=== PATIENT | female | born 1990 | race Caucasian/White ===

== ENCOUNTER 2016-12-24 13:05 | Emergency (ER) | payer OTHER ==
[~2016-12-24] VITALS: Ht 152.4 cm; Wt 54.1 kg
[2016-12-24 13:11] VITALS: BP 109/70; PULSE 85; RESP 16; O2SAT 97
--- NOTE | 2016-12-24 13:27 | ED.REPORT ---
HPI-NVD Date of Service Dec 24, 2016 ED Provider: Nathan Rey MD Pt is a 26 y.o. female who presents to the ED c/o general weakness and fatigue onset 2 day ago. Pt reports that she had a sinus infection 2 weeks ago and was prescribed abx, she discontinued them after a week as she felt improved. 2 days ago she began to feel a decline in her health again and now reports associated nausea, vomiting (x1), chills, headache, diaphoresis, congestion, sinus problem , ear pain and ringing bilaterally. She denies fever and cough. She states that her housemates have also been sick recently and the friend that accompanies her to the ED states that he is still experiencing a sinus infection. Nursing Notes Stated Complaint: VOMITING/WEAK Chief Complaint: General Complaint Nursing Notes Reviewed: Yes ([employer] not reconciled) Allergies: Coded Allergies: hydrocodone bit (Verified Allergy, 11/29/12) Scheduled PRN Promethazine (Promethazine) 25 Mg Tablet 25 MG PO Q6H PRN PRN For Nausea General Time Seen by MD: 13:25 Chief Complaint Other (Weakness and Fatigue) Hx Obtained From: Patient Arrived By: Walk-in Onset Occurred: 2 days ago Context of Onset: Recent antibiotic use Symptom Duration: Since onset Recent Healthcare: No recent hospitalization, Recent doctor visit Past Medical History Past Medical History EMR indicates hx of substance abuse Past Surgical History Denies Review of Systems Constitutional: Reports: Chills, Fatigue, Weakness - generalized, Denies: Fever Ears / Nose / Throat: Reports: Ear ringing bilateral, Earache bilateral, Nasal congestion, Sinus problem GI: Reports: Nausea Skin: Reports Diaphoresis Neurologic: Reports: Headache Complete sys rev & neg: except as marked. Respiratory: Denies: Non-productive cough Physical Exam Initial Vital Signs Vital Signs (First) Date Time Temp Pulse Resp B/P Pulse Ox O2 Delivery O2 Flow Rate FiO2 12/24/16 13:11 36.9 85 16 109/70 97 Room Air Initial VS: Reviewed, Vital signs normal Head / Eyes: Atraumatic, Normocephalic Extremities: Vascular intact, Neuro intact Skin: Warm, Dry, No cyanosis Neurologic: Alert, Oriented, Nonfocal Psychiatric: Mood/affect normal, Behavior normal, Normal thought content General/Constitutional: Awake, Alert, No acute distress Appears fatigued ENT: Atraumatic, Airway patent, Tympanic membs NL, Ext aud canal NL Pharynx / Tonsils / Uvula: Positive: Pharyngeal erythema (Faint) Nasal congestion Respiratory / Chest: Atraumatic, Breath sounds NL, Breath sounds = bilat, No respiratory distress Cardiovascular: Heart rate NL, Regular rhythm, Heart sounds NL, Peripheral circulation NL Soft Tissue Neck: Positive: Cervical adenopathy L... (Trace), Cervical adenopathy R... (Trace) Interpretation & Diagnostics Lab Results Interpretation Result Diagram: 12/24/16 1403 12/24/16 1403 Test 12/24/16 14:03 12/24/16 14:19 White Blood Count 10.1th/mm3 (3.8-10.1) Red Blood Count 4.33mil/mm3 (3.90-5.20) Hemoglobin 11.9g/dL (12.0-15.6) Hematocrit 35.9% (35.0-46.0) Mean Corpuscular Volume 82.9fL (81-100) Mean Corpuscular Hemoglobin 27.5pg (27.0-35.0) Mean Corpuscular Hemoglobin Concent 33.1% (32.0-37.0) Red Cell Distribution Width 12.2% (12.3-15.4) Platelet Count 299bil/L (150-400) Neutrophils (%) (Auto) 75.0% (40-74) Lymphocytes (%) (Auto) 19.4% (14-46) Monocytes (%) (Auto) 3.8% (4-12) Eosinophils (%) (Auto) 1.3% (0-5) Basophils (%) (Auto) 0.2% (0-3) Sodium Level 129mEq/L (134-144) Potassium Level 3.7mEq/L (3.5-5.2) Chloride Level 89mEq/L (97-108) Carbon Dioxide Level 26mmol/L (18-29) Blood Urea Nitrogen 12mg/dL (6-20) Creatinine 0.51mg/dL (0.57-1.00) Estimat Glomerular Filtration Rate 209mL/min (>59) Glucose Level 128mg/dL (60-99) Lactic Acid Level 1.7mmol/L (0.4-2.0) Calcium Level 8.2mg/dL (8.5-10.1) Total Bilirubin 0.2mg/dL (0.0-1.2) Aspartate Amino Transf (AST/SGOT) 19U/L (0-50) Alanine Aminotransferase (ALT/SGPT) 33U/L (0-32) Alkaline Phosphatase 72U/L (25-150) Total Protein 6.7g/dL (6.4-8.4) Albumin 3.7g/dL (3.4-5.0) Lipase 26U/L (13-60) Human Chorionic Gonadotropin, Qual Negative (Negative) Urine Color Dark yellow (YELLOW) Urine Appearance Clear (CLEAR,HAZY) Urine pH 7.5 (5.0-8.0) Urine Specific Alva 1.025 (1.003-1.035) Urine Protein Negativemg/dL (NEG,TRACE) Urine Glucose (UA) Negativemg/dL (NEGATIVE) Urine Ketones Negativemg/dL (NEGATIVE) Urine Occult Blood Negative (NEGATIVE) Urine Nitrite Negative (NEGATIVE) Urine Bilirubin Negative (NEGATIVE) Urine Urobilinogen 1.0mg/dL (NORMAL) Urine Leukocyte Esterase Negative (NEGATIVE) Urine RBC 0-2/hpf (0-2) Urine WBC 0-5/hpf (0-5) Urine Epithelial Cells None/hpf (NONE-MOD) Urine Crystals None seen (NONE SEEN) Urine Bacteria Few/hpf (NONE-FEW) Urine Hyaline Casts None/lpf (NONE) Urine Granular Casts None seen (NONE SEEN) Urine Waxy Casts None seen (NONE SEEN) Urine Red Blood Cell Casts None seen (NONE SEEN) Urine White Blood Cell Casts None seen (NONE SEEN) Urine Mucus Present (None Seen) Urine Trichomonas None seen (NONE SEEN) Urine Yeast None (NONE SEEN) Urinalysis Comment None Urine Culture Reflexed Not indicated General Lab Results Interp 1: Labs reviewed and NL General Lab Results Interp 2: Urinalysis NL Re-Eval/Medical Decision Med Decision/Clinical Course This is a 26-year-old female who reports she and roommates develop a flulike illness several weeks ago, than she initially improved, through passive basis had recurrence and just feels really poorly. Had some nausea and some vomiting some diarrhea as some headaches sore throat, ear fullness, tinnitus, swollen lymph glands and trace cough. On exam she appears slightly fatigued, but not in extremis. There is no meningismus. Both ears are normal without evidence of otitis media or effusion. She does have trace cervical adenopathy trace pharyngeal erythema without other heart findings-there are no findings of meningitis. Chest is clear to auscultation wheezes rales or rhonchi. Abdomen is soft and entirely nontender. Extremities are atraumatic no rash or exanthem. Formal influenza swab was negative. Blood work revealed mild hyponatremia nonspecific-the patient which she really has not been eating because of the nausea but has been drinking nothing but clear water-to the need for more balance to approach and electrolyte replacement was discussed. The patient declined a chest x-ray, given normal vitals and lung exams I think that is reasonable. She does not have any markers on exam or on laboratory findings to indicate a serious bacterial infection or need for more invasive testing or imaging. Reassurance is provided. Help rash with nausea provided prescription for some promethazine. The patient's discharged in stable condition. Routine precautions were reviewed. At this point imaging still points and likely viral syndrome, and given the recent flu symptoms likely a flulike syndrome. However again as noted above not finding signs of a secondary bacterial infection or more severe illness at this time. Source of Hx: Old records Re-Evaluation/Progress #1: Time of Eval: 13:35 Re-Evaluation/Progress Note: Pt declines chest x-ray and IV fluids. Re-Evaluation/Progress #2: Time of Eval: 14:16 Re-Evaluation/Progress Note: UC report from 12/16 received and it indicates pt is on 23mg Methadone daily, which is not indicated anywhere else in her chart. Re-Evaluation/Progress #3: Time of Eval: 16:09 Re-Evaluation/Progress Note: Pt rechecked. Discussed lab results and plan for discharge, pt udnerstands and agrees with plan. Differential Diagnosis: Positive: Viral syndrome, Negative: Bowel obstruction, C. diff colitis, Crohn's disease, Diabetes mellitus, Diabetic ketoacidosis, Izabel-Corbett syndrome, Migraine headache, , Ulcerative colitis Discharge & Departure Impression: Primary Impression: Influenza-like illness Disposition: Home Discharge Condition All VS Reviewed: Yes Condition: Stable Additional Instructions: 1. You did the right thing by coming in a being checked out given how long you have been ill and that things started to get worse. 2. Your blood tests did not reveal any markers of dangerous bacterial infection. Your symptoms exams and laboratory tests are very suggestive of a viral infection. This means that additional antibiotics are unlikely to be of benefit and are not recommended. 3. Blood tests did reveal your sodium was slightly low (129) this is usually an indication for doing very well and drinking lots of water, but is important given how long symptoms going on that there should there be an appropriate balance of salt. I recommend drinking half strength Gatorade, or at least having some saltines with the water is the balance. It is okay not to eat still. 4. Symptoms are expected to improve with time. 5. Take promethazine 25 mg 1 tab up to every 4 hours as needed for nausea. This medicine and Some Slight Drowsiness, but It Is Safe to Combined with Methadone. 6. Return if new or worsening symptoms. Referrals: NOPCP (PCP) [facility] [employer] Attestation Portions of this note were transcribed by Dar Mcknight. I, Dr. Rey personally performed the history, physical exam and medical decision-making; I reviewed and confirmed the accuracy of the information in the transcribed note. Signed by: Ana Esparza, 12/24/16 and 0337. copies to: [facility] Nathan Rey MD Dec 24, 2016 13:27 DAR MCKNIGHT Dec 24, 2016 13:36
[2016-12-24 14:07] LABS: BASOPHILS % (AUTO) 0.2 % (0-3); EOSINOPHILS % (AUTO) 1.3 % (0-5); MONOCYTES % (AUTO) 3.8 % (4-12); Mean Corpuscular Hemoglobin 27.5 pg (27.0-35.0); Mean Corpuscular Volume 82.9 fL (81-100); Platelet Count 299 bil/L (150-400)
[2016-12-24 14:24] LABS: Lipase 26 U/L (13-60)
[2016-12-24 14:49] LABS: APPEARANCE,URINE CLEAR (CLEAR,HAZY); COLOR,URINE DARK YELLOW (YELLOW); OCCULT BLOOD,URINE NEGATIVE (NEGATIVE); PH,URINE 7.5 (5.0-8.0)
[2016-12-24] MEDS ORDERED: PROM25TA14 PO (16:25)
[2016-12-24 16:37] VITALS: BP 106/68; PULSE 88; RESP 16; O2SAT 97
== END 2016-12-24 16:40 | disposition home or self-care (01) ==
LOC: SED 13:05
DX: J11.1 Influenza due to unidentified influenza virus with other respiratory manifestations (principal); R61 Generalized hyperhidrosis; Z88.5 Allergy status to narcotic agent